=== PATIENT | female | born 1945 | race Caucasian/White ===

== ENCOUNTER 2017-05-22 19:24 | Emergency (ER) | payer MEDICARE, BC ==
[2017-05-22] MEDS ORDERED: Sodium Chloride 0.9% 1,000 ML IV ONE (19:55)
--- NOTE | 2017-05-22 19:55 | EDM.PDOC ---
ED HPI GENERAL MEDICAL PROBLEM - General Chief Complaint: General Stated Complaint: OVERDOSE MEDICATION Time Seen by Provider: 05/22/17 19:37 Source of Information: Reports: Patient History Limitations: Reports: No Limitations - History of Present Illness INITIAL COMMENTS - FREE TEXT/NARRATIVE: HISTORY AND PHYSICAL: History of present illness: Patient is a 71-year-old female who is brought to the emergency room by her daughter with concerns of drowsiness from her home medication. The patient states that she was placed on Xanax over 5 years ago and was switched to clonazepam to help manage her anxiety. At that time she was meant to be on this medication short-term but has been taking daily since. During that time she was also placed on amitriptyline to help manage her anxiety. Patient states that over the past several years she has progressively come more and more drowsy. Her primary care provider retired approximately 2 weeks ago. She called her requesting to be taken off all of her anti-anxiety medications as she did not like the drowsiness became with it. As the primary care provider is no longer working she encouraged her to follow up in the emergency room. Patient is here with the expectation that her medications will be managed and adjusted. She states that she has not taken any additional medications (has not exceeded the scheduled/prescribed amount). Review of systems: As per history of present illness and below otherwise all systems reviewed and negative. Past medical history: As per history of present illness and as reviewed below otherwise noncontributory. Surgical history: As per history of present illness and as reviewed below otherwise noncontributory. Social history: No reported history of drug or alcohol abuse. Family history: As per history of present illness and as reviewed below otherwise noncontributory. Physical exam: General: Well-developed and well-nourished 71-year-old female. Alert and orientated. She is slow to answer questions but very talkative. Appears nontoxic and in no acute distress. Tearful when talking about her anxiety. HEENT: Atraumatic, normocephalic, pupils reactive, negative for conjunctival pallor or scleral icterus, mucous membranes moist, throat clear, neck supple, multiple teeth missing with poor dental health, neck is nontender, trachea midline. Lungs: Clear to auscultation, breath sounds equal bilaterally, chest nontender. Heart: S1S2, regular, negative for clicks, rubs, or JVD. Abdomen: Soft, nondistended, nontender. Negative for masses or hepatosplenomegaly. Negative for costovertebral tenderness. Pelvis: Stable nontender. Genitourinary: Deferred. Rectal: Deferred. Extremities: Atraumatic, moves all extremities per self, negative for cords or calf pain. Neurovascular unremarkable. Neuro: Awake, alert, oriented. Cranial nerves II through XII unremarkable. Cerebellum unremarkable. Motor and sensory unremarkable throughout. Exam nonfocal. Skin: Erythema noted to the right wilkerson with no edema drainage noted. His was outlined with a surgical marker. Notes: Patient becomes tearful while talking about her anxiety. She is concerned that she will be placed on another medication during her evaluation in the ER. She had an expectation that her medications will be discontinued under our supervision in the ER. Stating "I want you to take me off everything... I'll just deal with my anxiety". She denies any thoughts of self harm, suicide or homicidal thoughts. I did have a lengthy discussion with both the patient and daughter who is at bedside, about the possible effects of stopping her clonazepam and amitriptyline abruptly. We discussed the importance of close managment and supervision by her PCP to help wean her off these medications safely. She voices understanding. She states she would like to make sure there is no other reason for her confusion today. I will do some routine lab work along with a head CT as she states she has had previous falls. Denies hitting her head or any LOC. WBC 11.06. Urine drug screen shows positive for opiates, negative for benzodiazepine; reports she is taking her Clonazepam as directed. She states she has intermittently used some Tylenol with codeine for her neuropathy pain but states she hasn't in over 2 weeks. She states she takes Tylenol extra strength A urine culture was added as it appears to be a contaminated sample. Bactrim DS will be given to her for a mild cellulitis of her right lower extremity. This was outlined with a surgical marker. We discussed in length signs and symptoms to monitor for. Diagnostics: CBC, CMP, troponin, EKG, TSH, urinalysis, chest x-ray, drug screen, head CT Therapeutics: IV fluids Impression: Anxiety Cellulitis, right lower extremity Plan: 1. Please take the antibiotic as discussed. Continue to monitor the redness of your right lower extremity and follow up with her primary care provider. 2. Please correlate your anti-anxiety medication discontinuation with your primary care provider. As we discussed you cannot discontinue these abruptly. 3. Return to the ED as needed and as discussed. Definitive disposition and diagnosis as appropriate pending reevaluation and review of above. Duration: Chronic denies pain Pain Score (Numeric/FACES): 0 - Related Data Allergies Allergy/AdvReac Type Severity Reaction Status Date / Time codeine Allergy Stomach Verified 05/22/17 20:08 Upset prochlorperazine Allergy Anxiety Verified 05/22/17 20:08 [From Compazine] Home Meds: Home Meds Amitriptyline [Elavil] 1 tab PO DAILY 05/22/17 [History] ClonazePAM [KlonoPIN] 0.5 mg PO BID 05/22/17 [History] Enalapril [Vasotec] 5 mg PO DAILY 05/22/17 [History] Furosemide [Lasix] 1 tab PO DAILY 05/22/17 [History] ED ROS GENERAL - Review of Systems Review Of Systems: ROS reveals no pertinent complaints other than HPI. ED EXAM, GENERAL - Physical Exam Exam: See Below (See dictation) Course - Vital Signs Last Recorded V/S: Last Vital Signs Temp 97.8 F 05/22/17 19:40 Pulse 82 05/22/17 20:54 Resp 17 05/22/17 20:54 BP 118/61 05/22/17 20:54 Pulse Ox 95 05/22/17 20:54 - Orders/Labs/Meds Orders: Active Orders 24 hr Category Date Time Status EKG Documentation Completion [RC] STAT Care 05/22/17 19:48 Active Chest 1V Frontal [CR] Stat Exams 05/22/17 19:48 Taken Head wo Cont [CT] Stat Exams 05/22/17 19:48 Taken CULTURE URINE [RM] Stat Lab 05/22/17 20:30 Received Sodium Chloride 0.9% [Normal Saline] 1,000 ml Med 05/22/17 19:55 Active IV STAT Medication Orders Sodium Chloride (Normal Saline) 1,000 mls @ 250 mls/hr IV STAT ONE Stop: 05/22/17 23:54 Last Admin: 05/22/17 20:28 Dose: 250 mls/hr Labs: Laboratory Tests 05/22/17 05/22/17 05/22/17 Range/Units 19:59 19:59 20:30 WBC 11.06 H (4.0-11.0) K/uL RBC 4.82 (4.30-5.90) M/uL Hgb 15.2 (12.0-16.0) g/dL Hct 43.6 (36.0-46.0) % MCV 90.5 (80.0-98.0) fL MCH 31.5 (27.0-32.0) pg MCHC 34.9 (31.0-37.0) g/dL RDW Std Deviation 43.0 (28.0-62.0) fl RDW Coeff of Jessica 13 (11.0-15.0) % Plt Count 278 (150-400) K/uL MPV 9.90 (7.40-12.00) fL Neut % (Auto) 70.6 (48.0-80.0) % Lymph % (Auto) 21.0 (16.0-40.0) % Clinch % (Auto) 6.6 (0.0-15.0) % Eos % (Auto) 1.4 (0.0-7.0) % Baso % (Auto) 0.4 (0.0-1.5) % Neut # (Auto) 7.8 H (1.4-5.7) K/uL Lymph # (Auto) 2.3 (0.6-2.4) K/uL Clinch # (Auto) 0.7 (0.0-0.8) K/uL Eos # (Auto) 0.2 (0.0-0.7) K/uL Baso # (Auto) 0.0 (0.0-0.1) K/uL Nucleated RBC % 0.0 /100WBC Nucleated RBCs # 0 K/uL Sodium 132 L (136-145) mmol/L Potassium 3.8 (3.5-5.1) mmol/L Chloride 99 (98-107) mmol/L Carbon Dioxide 23.1 (21.0-32.0) mmol/L BUN 20 H (7.0-18.0) mg/dL Creatinine 0.8 (0.6-1.0) mg/dL Est Cr Clr Drug Dosing TNP Estimated GFR (MDRD) > 60.0 ml/min Glucose 213 H (74-106) mg/dL Calcium 8.8 (8.5-10.1) mg/dL Total Bilirubin 0.3 (0.2-1.0) mg/dL AST 23 (15-37) IU/L ALT 43 (14-63) IU/L Alkaline Phosphatase 118 H (46-116) U/L Total Protein 7.1 (6.4-8.2) g/dL Albumin 3.3 L (3.4-5.0) g/dL Globulin 3.8 H (2.0-3.5) g/dL Albumin/Globulin Ratio 0.9 L (1.3-2.8) TSH 3rd Generation 2.16 (0.36-3.74) uIU/mL Urine Color YELLOW Urine Appearance SLT CLOUDY Urine pH 6.0 (5.0-8.0) Ur Specific [place] 1.010 (1.001-1.035) Urine Protein NEGATIVE (NEGATIVE) mg/dL Urine Glucose (UA) NEGATIVE (NEGATIVE) mg/dL Urine Ketones NEGATIVE (NEGATIVE) mg/dL Urine Occult Blood SMALL H (NEGATIVE) Urine Nitrite NEGATIVE (NEGATIVE) Urine Bilirubin NEGATIVE (NEGATIVE) Urine Urobilinogen 0.2 (<2.0) EU/dL Ur Leukocyte Esterase NEGATIVE (NEGATIVE) Urine RBC 0-2 (0-2/HPF) Urine WBC 0-2 (0-5/HPF) Ur Epithelial Cells MODERATE (NONE-FEW) Urine Bacteria FEW (NEGATIVE) Urine Opiates Screen (NEGATIVE) Ur Oxycodone Screen (NEGATIVE) Urine Methadone Screen (NEGATIVE) Ur Barbiturates Screen (NEGATIVE) Ur Phencyclidine Scrn (NEGATIVE) Ur Amphetamine Screen (NEGATIVE) U Methamphetamines Scrn (NEGATIVE) U Benzodiazepines Scrn (NEGATIVE) U Cocaine Metab Screen (NEGATIVE) U Marijuana (THC) Screen (NEGATIVE) 05/22/17 Range/Units 20:30 WBC (4.0-11.0) K/uL RBC (4.30-5.90) M/uL Hgb (12.0-16.0) g/dL Hct (36.0-46.0) % MCV (80.0-98.0) fL MCH (27.0-32.0) pg MCHC (31.0-37.0) g/dL RDW Std Deviation (28.0-62.0) fl RDW Coeff of Jessica (11.0-15.0) % Plt Count (150-400) K/uL MPV (7.40-12.00) fL Neut % (Auto) (48.0-80.0) % Lymph % (Auto) (16.0-40.0) % Clinch % (Auto) (0.0-15.0) % Eos % (Auto) (0.0-7.0) % Baso % (Auto) (0.0-1.5) % Neut # (Auto) (1.4-5.7) K/uL Lymph # (Auto) (0.6-2.4) K/uL Clinch # (Auto) (0.0-0.8) K/uL Eos # (Auto) (0.0-0.7) K/uL Baso # (Auto) (0.0-0.1) K/uL Nucleated RBC % /100WBC Nucleated RBCs # K/uL Sodium (136-145) mmol/L Potassium (3.5-5.1) mmol/L Chloride (98-107) mmol/L Carbon Dioxide (21.0-32.0) mmol/L BUN (7.0-18.0) mg/dL Creatinine (0.6-1.0) mg/dL Est Cr Clr Drug Dosing Estimated GFR (MDRD) ml/min Glucose (74-106) mg/dL Calcium (8.5-10.1) mg/dL Total Bilirubin (0.2-1.0) mg/dL AST (15-37) IU/L ALT (14-63) IU/L Alkaline Phosphatase (46-116) U/L Total Protein (6.4-8.2) g/dL Albumin (3.4-5.0) g/dL Globulin (2.0-3.5) g/dL Albumin/Globulin Ratio (1.3-2.8) TSH 3rd Generation (0.36-3.74) uIU/mL Urine Color Urine Appearance Urine pH (5.0-8.0) Ur Specific [place] (1.001-1.035) Urine Protein (NEGATIVE) mg/dL Urine Glucose (UA) (NEGATIVE) mg/dL Urine Ketones (NEGATIVE) mg/dL Urine Occult Blood (NEGATIVE) Urine Nitrite (NEGATIVE) Urine Bilirubin (NEGATIVE) Urine Urobilinogen (<2.0) EU/dL Ur Leukocyte Esterase (NEGATIVE) Urine RBC (0-2/HPF) Urine WBC (0-5/HPF) Ur Epithelial Cells (NONE-FEW) Urine Bacteria (NEGATIVE) Urine Opiates Screen POSITIVE (NEGATIVE) Ur Oxycodone Screen NEGATIVE (NEGATIVE) Urine Methadone Screen NEGATIVE (NEGATIVE) Ur Barbiturates Screen NEGATIVE (NEGATIVE) Ur Phencyclidine Scrn NEGATIVE (NEGATIVE) Ur Amphetamine Screen NEGATIVE (NEGATIVE) U Methamphetamines Scrn NEGATIVE (NEGATIVE) U Benzodiazepines Scrn NEGATIVE (NEGATIVE) U Cocaine Metab Screen NEGATIVE (NEGATIVE) U Marijuana (THC) Screen NEGATIVE (NEGATIVE) Meds: Medications Generic Name Dose Route Start Last Admin Trade Name Freq PRN Reason Stop Dose Admin Sodium Chloride 1,000 mls @ 250 mls/hr 05/22/17 19:55 05/22/17 20:28 Normal Saline IV 05/22/17 23:54 250 mls/hr STAT ONE Administration Departure - Departure Time of Disposition: 22:08 Disposition: Home, Self-Care 01 Clinical Impression: Anxiety Cellulitis Qualifiers: Site of cellulitis: extremity Site of cellulitis of extremity: lower extremity Laterality: right Qualified Code(s): L03.115 - Cellulitis of right lower limb - Discharge Information Instructions: Cellulitis, Adult Referrals: PCP,None [Primary Care Provider] - Forms: ED Department Discharge Additional Instructions: The following information is given to patients seen in the emergency department who are being discharged to home. This information is to outline your options for follow-up care. We provide all patients seen in our emergency department with a follow-up referral. The need for follow-up, as well as the timing and circumstances, are variable depending upon the specifics of your emergency department visit. If you don't have a primary care physician on staff, we will provide you with a referral. We always advise you to contact your personal physician following an emergency department visit to inform them of the circumstance of the visit and for follow-up with them and/or the need for any referrals to a consulting specialist. The emergency department will also refer you to a specialist when appropriate. This referral assures that you have the opportunity for follow-up care with a specialist. All of these measure are taken in an effort to provide you with optimal care, which includes your follow-up. Under all circumstances we always encourage you to contact your private physician who remains a resource for coordinating your care. When calling for follow-up care, please make the office aware that this follow-up is from your recent emergency room visit. If for any reason you are refused follow-up, please contact the [facility] Emergency Department at and asked to speak to the emergency department charge nurse. [facility] [address] [place] [id number] 1. Please take the antibiotic as discussed. Continue to monitor the redness of your right lower extremity and follow up with her primary care provider. Establish care with Casandra FLORES. 2. Please correlate your anti-anxiety medication discontinuation with your primary care provider. As we discussed you cannot discontinue these abruptly. 3. Return to the ED as needed and as discussed. - My Orders Last 24 Hours: My Active Orders 05/22/17 19:48 EKG Documentation Completion [RC] STAT Chest 1V Frontal [CR] Stat Head wo Cont [CT] Stat 05/22/17 19:55 Sodium Chloride 0.9% [Normal Saline] 1,000 ml IV STAT 05/22/17 20:30 CULTURE URINE [RM] Stat - Assessment/Plan Last 24 Hours: My Active Orders 05/22/17 19:48 EKG Documentation Completion [RC] STAT Chest 1V Frontal [CR] Stat Head wo Cont [CT] Stat 05/22/17 19:55 Sodium Chloride 0.9% [Normal Saline] 1,000 ml IV STAT 05/22/17 20:30 CULTURE URINE [RM] Stat
[2017-05-22 20:37] LABS: CHLORIDE,CL 99 mmol/L (98-107); SODIUM,NA 132 mmol/L (136-145)
--- NOTE | 2017-05-23 12:37 | CR ---
EXAM DATE: 05/22/17 PATIENT'S AGE: 71 Patient: COREY GARDNER Facility: [place], [place] Site . Site : 1945 Study: XRay Chest [id number]/22/2018 8:50:50 PM Ordering Physician: Doctor De León Final Report: Indication: Shortness of breath, dizziness, altered mental status Technique: Chest 1 view Comparison: None Findings/Impression: Normal cardiomediastinal silhouette. Linear atelectasis or scarring at both lung bases. No effusion or pneumothorax. Degenerative changes in the spine and left glenohumeral joint. Dictated by Maliha Holley MD @ May 22 2017 8:53PM (Electronic Signature) Report Signed by Proxy. DANY
--- NOTE | 2017-05-23 12:38 | CT ---
EXAM DATE: 05/22/17 PATIENT'S AGE: 71 Patient: COREY GARDNER Facility: [place], [place] Site . Site : 1945 Study: CT Head WO CONT [id number]/22/2018 9:19:28 PM Ordering Physician: Doctor De León Final Report: INDICATION: Altered mental status. Dizziness. TECHNIQUE: CT Head without i.v. contrast. COMPARISON: None FINDINGS: Artist Consultant CT images: Hyperostosis frontalis noted on lateral market research interviewer CT image. CSF spaces: Within normal limits for age. Brain parenchyma: Mild diffuse cortical atrophy is noted. There are low attenuation white matter changes, likely due to chronic microvascular disease. The brain parenchyma is normal in appearance with preservation of the workman- white matter junction. No sign of mass, hemorrhage, or midline shift seen. Skull base and calvarium: The visualized paranasal sinuses are well aerated. The mastoid air cells are clear. The visualized orbits are grossly unremarkable. No skull fractures are seen. IMPRESSION: 1. No evidence of acute infarction, intracranial hemorrhage, or mass effect seen. Dictated by Denis Florentino MD @ 05/22/2017 9:27:56 PM Dictated by: Denis Florentino MD @ 05/22/2017 21:28:39 (Electronic Signature) Report Signed by Proxy. DANY
== END 2017-05-22 22:49 | disposition home or self-care (01) ==
LOC: MW.ED 19:24
DX: F41.9 Anxiety disorder, unspecified (principal); L03.115 Cellulitis of right lower limb; Z88.5 Allergy status to narcotic agent; Z88.8 Allergy status to other drugs, medicaments and biological substances; Z79.899 Other long term (current) drug therapy
CPT/HCPCS: 36415; 70450; 71045; 80053; 80305; 81001; 84443; 85025; 87086; 93005; 96360; 96361; 99284; J7040; 99283

== ENCOUNTER 2018-05-16 15:02 | Emergency (ER) | payer MEDICARE, BC ==
--- NOTE | 2018-05-16 15:36 | EDM.PDOC ---
ED HPI GENERAL MEDICAL PROBLEM - General Chief Complaint: General Stated Complaint: HAVING PAINS Time Seen by Provider: 05/16/18 15:05 Source of Information: Reports: Patient History Limitations: Reports: No Limitations - History of Present Illness INITIAL COMMENTS - FREE TEXT/NARRATIVE: HISTORY AND PHYSICAL: History of present illness: Patient is a 72-year-old female who presents to the emergency room with multiple vague complaints x 2 weeks. She has had intermittent hot and cold flashes and generalized body aches. She states that she has been struggling with her anxiety which she contributes to starting Carafate; which was prescribed by Dr. Malik for her chronic nausea and GI upset. Soon after taking this medications she started noticing increased anxiety, restlessness and insomnia. Patient is scheduled to have a barium swallow study next week. She denies any fever, chills, chest pain, shortness of breath or cough. Denies any abdominal pain, constipation, diarrhea or dysuria. She states she does have a decrease in her appetite but has been drinking fluids appropriately. Review of systems: As per history of present illness and below otherwise all systems reviewed and negative. Past medical history: As per history of present illness and as reviewed below otherwise noncontributory. Surgical history: As per history of present illness and as reviewed below otherwise noncontributory. Social history: See social history for further information Family history: As per history of present illness and as reviewed below otherwise noncontributory. Physical exam: General: Well-developed and well-nourished 72-year-old female. Alert and oriented. Nontoxic appearing and in no acute distress. HEENT: Atraumatic, normocephalic, pupils equal and reactive bilaterally, negative for conjunctival pallor or scleral icterus, mucous membranes moist, multiple dental caries and missing teeth noted, TMs normal bilaterally, throat clear, neck supple, nontender, trachea midline. No drooling or trismus noted. No meningeal signs. No hot potato voice noted. Lungs: Clear to auscultation, breath sounds equal bilaterally, chest nontender. Heart: S1S2, regular rate and rhythm without overt murmur Abdomen: Soft, nondistended, obese, nontender. Negative for masses. Negative for costovertebral tenderness. Pelvis: Stable nontender. Genitourinary: Deferred. Rectal: Deferred. Skin: Patient does have lyle-colored lower extremities bilaterally. Intact, warm , dry. No lesions or rashes noted. Extremities: Atraumatic, moves all per self without difficulty or deficits, ambulates with a cane, negative for cords or calf pain. Neurovascular unremarkable. Neuro: Awake, alert, oriented. Cranial nerves II through XII unremarkable. Cerebellum unremarkable. Motor and sensory unremarkable throughout. Exam nonfocal. Notes: During the interviewing process the patient states that she "can't keep going like this... I'm tired of all these problems". We did discuss the need for close follow-up with Dr Irvin, her primary care provider and Dr Malik; briefly discussed the possibility of admission. She states that she is unable to stay in the emergency room along today patient does need to return home to [facility] for caring for her . Chest x-ray shows no acute findings. Lab work is unremarkable. Patient will be discharged to home. Encouraged her to follow up with Dr. Malik who she sees early next week along with Dr. villarreal, her primary care provider. Supportive care measures were reviewed and discussed. Voices understanding and is agreeable to plan of care. Denies any further questions or concerns at this time. Diagnostics: CBC, CMP, TSH, UA Therapeutics: Ativan Prescription: None Impression: Anxiety Plan: 1. Continue following with Dr Malik for your chronic GI problems that are currently being evaluated. 2. Dr. Irvin should be informed of your concerns and year medications may need to be adjusted. Follow up as we discussed. 3. Return to the ED as needed and as discussed. Definitive disposition and diagnosis as appropriate pending reevaluation and review of above. Left Hip Pain Score (Numeric/FACES): 8 - Related Data Allergies Allergy/AdvReac Type Severity Reaction Status Date / Time codeine Allergy Stomach Verified 05/16/18 15:14 Upset prochlorperazine Allergy Anxiety Verified 05/16/18 15:14 [From Compazine] Home Meds: Home Meds Amitriptyline [Elavil] 1 tab PO DAILY 05/22/17 [History] ClonazePAM [KlonoPIN] 0.5 mg PO BID 05/22/17 [History] Enalapril [Vasotec] 5 mg PO DAILY 05/22/17 [History] Furosemide [Lasix] 1 tab PO DAILY 05/22/17 [History] Past Medical History HEENT History: Reports: Impaired Vision Cardiovascular History: Reports: Hypertension Respiratory History: Reports: Asthma Gastrointestinal History: Reports: Other (See Below) Other Gastrointestinal History: Gastroparesis Genitourinary History: Reports: None [employer]ESTER History: Reports: Musculoskeletal History: Reports: Fibromyalgia, Other (See Below) Other Musculoskeletal History: peripheral nerve damage Neurological History: Reports: None Psychiatric History: Reports: Anxiety Endocrine/Metabolic History: Reports: Diabetes, Type II Hematologic History: Reports: None Immunologic History: Reports: None Oncologic (Cancer) History: Reports: None Dermatologic History: Reports: None - Infectious Disease History Infectious Disease History: Reports: Mumps - Past Surgical History Head Surgeries/Procedures: Reports: None Social & Family History - Family History Family Medical History: Noncontributory - Tobacco Use Smoking Status *Q: Current Every Day Smoker Years of Tobacco use: 40 Packs/Tins Daily: 1 - Caffeine Use Caffeine Use: Reports: None - Recreational Drug Use Recreational Drug Use: No ED ROS GENERAL - Review of Systems Review Of Systems: ROS reveals no pertinent complaints other than HPI. ED EXAM, GENERAL - Physical Exam Exam: See Below (See dictation) Course - Vital Signs Last Recorded V/S: Last Vital Signs Temp 98.6 F 05/16/18 15:15 Pulse 92 05/16/18 15:15 Resp 20 05/16/18 15:15 BP 177/81 H 05/16/18 15:15 Pulse Ox 99 05/16/18 15:15 - Orders/Labs/Meds Orders: Active Orders 24 hr Category Date Time Status EKG Documentation Completion [RC] STAT Care 05/16/18 15:19 Active Labs: Laboratory Tests 05/16/18 05/16/18 05/16/18 Range/Units 15:15 15:15 15:15 WBC 9.72 (4.0-11.0) K/uL RBC 4.76 (4.30-5.90) M/uL Hgb 15.0 (12.0-16.0) g/dL Hct 43.0 (36.0-46.0) % MCV 90.3 (80.0-98.0) fL MCH 31.5 (27.0-32.0) pg MCHC 34.9 (31.0-37.0) g/dL RDW Std Deviation 42.4 (28.0-62.0) fl RDW Coeff of Jessica 13 (11.0-15.0) % Plt Count 293 (150-400) K/uL MPV 10.00 (7.40-12.00) fL Neut % (Auto) 67.5 (48.0-80.0) % Lymph % (Auto) 24.2 (16.0-40.0) % [place] % (Auto) 6.1 (0.0-15.0) % Eos % (Auto) 1.7 (0.0-7.0) % Baso % (Auto) 0.5 (0.0-1.5) % Neut # (Auto) 6.6 H (1.4-5.7) K/uL Lymph # (Auto) 2.4 (0.6-2.4) K/uL [place] # (Auto) 0.6 (0.0-0.8) K/uL Eos # (Auto) 0.2 (0.0-0.7) K/uL Baso # (Auto) 0.1 (0.0-0.1) K/uL Nucleated RBC % 0.0 /100WBC Nucleated RBCs # 0 K/uL Sodium 134 L (136-145) mmol/L Potassium 4.3 (3.5-5.1) mmol/L Chloride 97 L (98-107) mmol/L Carbon Dioxide 27.2 (21.0-32.0) mmol/L BUN 22 H (7.0-18.0) mg/dL Creatinine 0.7 (0.6-1.0) mg/dL Est Cr Clr Drug Dosing 63.65 mL/min Estimated GFR (MDRD) > 60.0 ml/min Glucose 252 H (74-106) mg/dL Calcium 9.4 (8.5-10.1) mg/dL Total Bilirubin 0.2 (0.2-1.0) mg/dL AST 13 L (15-37) IU/L ALT 30 (14-63) IU/L Alkaline Phosphatase 97 (46-116) U/L Total Protein 7.7 (6.4-8.2) g/dL Albumin 3.5 (3.4-5.0) g/dL Globulin 4.2 H (2.6-4.0) g/dL Albumin/Globulin Ratio 0.8 L (0.9-1.6) Lipase 145 (73-393) U/L TSH 3rd Generation (0.36-3.74) uIU/mL Urine Color Urine Appearance Urine pH (5.0-8.0) Ur Specific Howard (1.001-1.035) Urine Protein (NEGATIVE) mg/dL Urine Glucose (UA) (NEGATIVE) mg/dL Urine Ketones (NEGATIVE) mg/dL Urine Occult Blood (NEGATIVE) Urine Nitrite (NEGATIVE) Urine Bilirubin (NEGATIVE) Urine Urobilinogen (<2.0) EU/dL Ur Leukocyte Esterase (NEGATIVE) H. pylori IgG Antibody NEGATIVE (NEG) 05/16/18 05/16/18 Range/Units 15:15 16:23 WBC (4.0-11.0) K/uL RBC (4.30-5.90) M/uL Hgb (12.0-16.0) g/dL Hct (36.0-46.0) % MCV (80.0-98.0) fL MCH (27.0-32.0) pg MCHC (31.0-37.0) g/dL RDW Std Deviation (28.0-62.0) fl RDW Coeff of Jessica (11.0-15.0) % Plt Count (150-400) K/uL MPV (7.40-12.00) fL Neut % (Auto) (48.0-80.0) % Lymph % (Auto) (16.0-40.0) % [place] % (Auto) (0.0-15.0) % Eos % (Auto) (0.0-7.0) % Baso % (Auto) (0.0-1.5) % Neut # (Auto) (1.4-5.7) K/uL Lymph # (Auto) (0.6-2.4) K/uL [place] # (Auto) (0.0-0.8) K/uL Eos # (Auto) (0.0-0.7) K/uL Baso # (Auto) (0.0-0.1) K/uL Nucleated RBC % /100WBC Nucleated RBCs # K/uL Sodium (136-145) mmol/L Potassium (3.5-5.1) mmol/L Chloride (98-107) mmol/L Carbon Dioxide (21.0-32.0) mmol/L BUN (7.0-18.0) mg/dL Creatinine (0.6-1.0) mg/dL Est Cr Clr Drug Dosing mL/min Estimated GFR (MDRD) ml/min Glucose (74-106) mg/dL Calcium (8.5-10.1) mg/dL Total Bilirubin (0.2-1.0) mg/dL AST (15-37) IU/L ALT (14-63) IU/L Alkaline Phosphatase (46-116) U/L Total Protein (6.4-8.2) g/dL Albumin (3.4-5.0) g/dL Globulin (2.6-4.0) g/dL Albumin/Globulin Ratio (0.9-1.6) Lipase (73-393) U/L TSH 3rd Generation 2.10 (0.36-3.74) uIU/mL Urine Color YELLOW Urine Appearance CLEAR Urine pH 7.5 (5.0-8.0) Ur Specific Howard 1.010 (1.001-1.035) Urine Protein NEGATIVE (NEGATIVE) mg/dL Urine Glucose (UA) 250 H (NEGATIVE) mg/dL Urine Ketones NEGATIVE (NEGATIVE) mg/dL Urine Occult Blood NEGATIVE (NEGATIVE) Urine Nitrite NEGATIVE (NEGATIVE) Urine Bilirubin NEGATIVE (NEGATIVE) Urine Urobilinogen 0.2 (<2.0) EU/dL Ur Leukocyte Esterase NEGATIVE (NEGATIVE) H. pylori IgG Antibody (NEG) Meds: Medications Discontinued Medications Generic Name Dose Route Start Last Admin Trade Name Freq PRN Reason Stop Dose Admin Lorazepam 1 mg 05/16/18 16:00 05/16/18 16:27 Ativan PO 05/16/18 16:01 1 mg ONETIME ONE Administration Departure - Departure Time of Disposition: 16:12 Disposition: Home, Self-Care 01 Clinical Impression: Anxiety - Discharge Information Instructions: Panic Attack, [id number] Referrals: PCP,None [Primary Care Provider] - Forms: ED Department Discharge Additional Instructions: The following information is given to patients seen in the emergency department who are being discharged to home. This information is to outline your options for follow-up care. We provide all patients seen in our emergency department with a follow-up referral. The need for follow-up, as well as the timing and circumstances, are variable depending upon the specifics of your emergency department visit. If you don't have a primary care physician on staff, we will provide you with a referral. We always advise you to contact your personal physician following an emergency department visit to inform them of the circumstance of the visit and for follow-up with them and/or the need for any referrals to a consulting specialist. The emergency department will also refer you to a specialist when appropriate. This referral assures that you have the opportunity for follow-up care with a specialist. All of these measure are taken in an effort to provide you with optimal care, which includes your follow-up. Under all circumstances we always encourage you to contact your private physician who remains a resource for coordinating your care. When calling for follow-up care, please make the office aware that this follow-up is from your recent emergency room visit. If for any reason you are refused follow-up, please contact the [facility] at and asked to speak to the emergency department charge nurse. [facility] [address] [place] [address] [place] [address] [facility] - General Surgery Professional Building [address] [place] [address], [address] [place] [address] 1. Continue following with Dr Malik for your chronic GI problems that are currently being evaluated. 2. Dr. Irvin should be informed of your concerns and year medications may need to be adjusted. Follow up as we discussed. 3. Return to the ED as needed and as discussed. - My Orders Last 24 Hours: My Active Orders 05/16/18 15:19 EKG Documentation Completion [RC] STAT - Assessment/Plan Last 24 Hours: My Active Orders 05/16/18 15:19 EKG Documentation Completion [RC] STAT
[2018-05-16 15:48] LABS: CHLORIDE,CL 97 mmol/L (98-107); SODIUM,NA 134 mmol/L (136-145)
[2018-05-16] MEDS ORDERED: LORazepam 1 MG Tab PO ONE (16:00)
--- NOTE | 2018-05-16 16:09 | CR ---
CHEST 1 VIEW AP INDICATION: Nausea vomiting. IMPRESSION: Normal heart size and vascular pattern. Lungs are clear of focal opacities. No pneumothorax or pleural abnormality. Dictated by Tim Hussein MD @ May 16 2018 4:08PM Signed by Dr. Tim Hussein @ May 16 2018 4:08PM
== END 2018-05-16 16:50 | disposition home or self-care (01) ==
LOC: MW.ED 15:02
DX: F41.9 Anxiety disorder, unspecified (principal); E11.9 Type 2 diabetes mellitus without complications; I10 Essential (primary) hypertension; F17.210 Nicotine dependence, cigarettes, uncomplicated; Z88.5 Allergy status to narcotic agent; Z88.8 Allergy status to other drugs, medicaments and biological substances; Z79.899 Other long term (current) drug therapy
CPT/HCPCS: 36415; 71045; 80053; 81003; 83690; 84443; 85025; 86677; 93005; 99284; A9270